=== PATIENT | female | born 1940 | race Caucasian/White ===

== ENCOUNTER 2020-10-18 20:53 | Emergency (ER) | payer OTHER ==
[~2020-10-18] VITALS: Ht 152.4 cm; Wt 59.0 kg
--- NOTE | ~2020-10-18 | EMS ---
[address] [address] EMS Patient Care Report Name: MARIELA FERNANDEZ Room #: DEP KAIT Peña#: [id number] Admission: 10/18/20 Attend Phys: Discharge: 10/18/20 Date of : 38 Report #: [id number] THIS REPORT FOR: //name// Report Transmitted: 10/19/2020 06:15 EMS Care Summary [facility] MED-ACT Incident [id number] @ 10/18/2020 20:12 Incident Location [address] [place] [address] Patient MARIELA FERNANDEZ Female, 80 Years 1940 Patient Address [address] [place] [address] Patient History Dementia, Patient Allergies No known allergies, Patient Medications None Reported, Chief Complaint Alterted Mental Status Disposition Transported No Lights/[place] Reason Unconscious/Fainting Transported To [facility] Narrative Pt found sitting in a living room chair in no apparent distress. Pt's RN states "The Pt has had altered mental status, generalized weakness and sluggish [address] [address] EMS Patient Care Report Name: MARIELA FERNANDEZ Room #: DEP Mariana#: [id number] Admission: 10/18/20 Attend Phys: Discharge: 10/18/20 Date of : 38 Report #: [id number] response to following commands for the past day. In the last hour she has shown some improvement and is now back to her baseline. Family and house MD would like her sent out for evaluation. Pt was assisted to ambulance cot and secured with seat belts. Pt was covered with a blanket for warmth and moved to the ambulance without incident. EMS alerted [facility] on MARCER system ENVIRONMENTAL FIELD SERVICES TECHNICIAN. Pt was delivered to ER bed 8 without change. Pt was moved to the hospital bed and secured with locked side rails in the upright position. Lead hospital chaplain gave report to receiving RN transferring care and Pt to hospital staff. Initial Vitals @20:34P: 69,R: 18,BP: 176/80,Pain: 0/10,GCS: 14,Temp: 97.8F,Glucose: 81,SpO2: 97,Revised Trauma: 12, @20:44P: 69,R: 18,BP: 147/70,Pain: 0/10,GCS: 14,SpO2: 97,Revised Trauma: 12, Assessments @20:55MENTAL:Confused,SKIN:HEENT:Eyes: Left Pupil: 2-mm,Eyes: Right Pupil: 2-mm,Head/Face: No Abnormalities,Neck/Airway: No Abnormalities,LUNG SOUNDS:General: No Abnormalities,ABDOMEN:General: No Abnormalities,PELVIS//GI:No Abnormalities,EXTREMITIES:Left Arm: No Abnormalities,Right Arm: No Abnormalities,Left Leg: No Abnormalities,Right Leg: No Abnormalities,PULSE:Radial: 2+ Normal,NEURO:No Abnormalities, Impression Altered Mental Status Procedures @PTASurgical Mask on PatientResponse: Unchanged Timeline ENVIRONMENTAL FIELD SERVICES TECHNICIAN,Surgical Mask on Patient,Response: Unchanged 20:10,Call Received 20:10,Psap Call 20:12,Dispatched 20:13,En Route 20:19,On Scene 20:23,At Patient 20:31,Depart Scene 20:34,BP: 176/80 M,PULSE: 69,RR: 18 R,SPO2: 97 Ox,ETCO2: ,B,PAIN: 0,GCS: 14, 20:44,BP: 147/70 M,PULSE: 69,RR: 18 R,SPO2: 97 Ox,ETCO2: ,BG: ,PAIN: 0,GCS: 14, 20:48,At Destination 21:05,Call Closed Disclaimer [facility] [address] [place] [address] EMS Patient Care Report Name: MARIELA FERNANDEZ Room #: DEP [facility].#: [id number] Admission: 10/18/20 Attend Phys: Discharge: 10/18/20 Date of : 38 Report #: [id number] v1.1 Copyright 2020 [employer] This EMS Care Summary contains data elements from the applicable legal record (which may be displayed differently). It is designed to provide pertinent information for the following purposes: continuity of care, clinical quality, and state data reporting. The complete legal record is available to ED staff and administrators of the receiving hospital in [employer] Patient Tracker. All data is provided "as is."
[2020-10-18 21:23] LABS: HEMATOCRIT 35.5 % (37.0-47.0); HEMOGLOBIN 11.5 gm/dL (12.0-15.0); MCH 29.7 pg (26.0-34.0); MCHC 32.4 g/dL (28.0-37.0); MCV 91.7 fL (80.0-100.0); RBC 3.87 mil/uL (4.20-5.00); RDW 13.3 % (10.5-14.5); WBC 7.1 thou/uL (4.0-11.0)
[2020-10-18 21:26] LABS: CALCIUM 9.5 mg/dL (8.5-10.1); CREATININE 1.3 mg/dL (0.6-1.0); POTASSIUM 3.9 mmol/L (3.5-5.1)
[2020-10-18 21:32] LABS: ALBUMIN 3.3 g/dL (3.4-5.0); TOTAL BILIRUBIN 0.3 mg/dL (0.2-1.0)
[2020-10-18] MEDS ORDERED: ASA81BEC PO (21:50)
[2020-10-18] MEDS ORDERED: NAMENDA 10 MG T10 MG PO (21:50)
[2020-10-18] MEDS ORDERED: RIVASTIGMINE6 MG PO (21:50)
[2020-10-18] MEDS ORDERED: CALCIUM 600 +1 EAC8 PO (21:51)
[2020-10-18] MEDS ORDERED: FISH OIL 1,001000 M2 PO (21:51)
[2020-10-18] MEDS ORDERED: FISH OIL 1,001000 M3 PO (21:52)
[2020-10-18] MEDS ORDERED: ALENDRONATE SOD70 MG PO (21:53)
[2020-10-18] MEDS ORDERED: FAMOTIDINE 20 M20 MG PO (21:53)
[2020-10-18] MEDS ORDERED: SIMVASTATIN80 MG PO (21:53)
[2020-10-18 22:08] LABS: URINE BILIRUBIN NEGATIVE (Negative); URINE BLOOD NEGATIVE (Negative); URINE CLARITY SL CLOUDY; URINE COLOR YELLOW; URINE GLUCOSE-RANDOM* NEGATIVE (Negative); URINE KETONES NEGATIVE (Negative); URINE LEUKOCYTES-REFLEX NEGATIVE (Negative); URINE NITRITE-REFLEX NEGATIVE (Negative); URINE PROTEIN (DIPSTICK) NEGATIVE (Negative); URINE SPECIFIC GRAVITY 1.015 (1.005-1.035); URINE UROBILINOGEN 0.2 E.U./dl (0.2-1.0)
[2020-10-18 23:16] VITALS: BP 130/50
--- NOTE | 2020-10-19 07:08 | EKG ---
[facility] [place] [address] ELECTROCARDIOGRAM REPORT Name: MARIELA FERNANDEZ [id number] Admission: 10/18/20 Attend Phys: Discharge: 10/18/20 Date of : 38 Report #: [id number] [facility] ED Test Date: 2020-10-18 Test Time: 21:07:57 Pat Name: MARIELA FERNANDEZ Department: Room: Gender: F Barrel Assembler: ba : 1940 Requested By: Katey Nolasco Order Number: [id number] MD: Jose Prieto Measurements Intervals [place] Rate: 70 P: 48 VT: 161 QRS: 11 QRSD: 87 T: 28 QT: 369 QTc: 399 Interpretive Statements Sinus rhythm LVH by voltage Baseline wander in lead(s) II,aVF No previous ECG available for comparison Electronically Signed On 10-19-2020 7:08:39 STEAM FLATTENER by Jose Prieto [email or web address] <ELECTRONICALLY SIGNED> By: Jose Prieto MD, [facility] 10/19/20 0708 06 06 Jose Prieto MD, FACC /EPI
== END 2020-10-18 23:18 ==
LOC: ER 20:53
PROVIDERS: Nurse Practitioner Family
DX: R41.0 Disorientation, unspecified (principal); G45.9 Transient cerebral ischemic attack, unspecified; I10 Essential (primary) hypertension; Z79.82 Long term (current) use of aspirin; Z79.899 Other long term (current) drug therapy

== ENCOUNTER 2021-01-19 23:11 | Inpatient (IN) | payer OTHER ==
[~2021-01-19] VITALS: Ht 152.4 cm; Wt 57.0 kg
[~2021-01-19 23:11] MED LIST: ALENDRONATE SOD70 MG PO; ASA81BEC PO; CALCIUM 600 +1 EAC8 PO; FAMOTIDINE 20 M20 MG PO; FISH OIL 1,001000 M2 PO; FISH OIL 1,001000 M3 PO; NAMENDA 10 MG T10 MG PO; RIVASTIGMINE6 MG PO; SIMVASTATIN80 MG PO
[2021-01-19 23:14] VITALS: BP 136/57
[2021-01-19] MEDS ORDERED: BIOFREEZE118 ML TOP (23:42)
[2021-01-19] MEDS ORDERED: CALCIUM500 MG PO (23:43)
[2021-01-19] MEDS ORDERED: COLACE100 MG PO (23:46)
[2021-01-19] MEDS ORDERED: LEXAPRO 10 MG T10 M1 PO (23:47)
[2021-01-19] MEDS ORDERED: RIVASTIGMINE6 MG PO (23:49)
[2021-01-19] MEDS ORDERED: FAMOTIDINE20 MG PO (23:50)
[2021-01-19] MEDS ORDERED: FISH OIL 1,0001 EAC9 PO (23:50)
[2021-01-19] MEDS ORDERED: SUPER THERAVIT1 EACH PO (23:51)
[2021-01-19] MEDS ORDERED: MELATONIN5 M4 PO (23:51)
[2021-01-19] MEDS ORDERED: NAMENDA 10 MG T10 MG PO (23:52)
[2021-01-19] MEDS ORDERED: NORCO5 PO ×2 (23:53→23:55)
[2021-01-19] MEDS ORDERED: ZOCOR20 MG PO ×2 (23:54)
[2021-01-19] MEDS ORDERED: IMODIUM A-D2 MG PO (23:55)
[2021-01-20] VITALS (7 sets, daily range): BP systolic 122–178; BP diastolic 69–81
[2021-01-20 00:42] LABS: ABSOLUTE NEUTROPHILS 6.5 thou/uL (1.4-8.2); BASOPHILS 0.5 % (0.0-2.0); EOSINOPHILS 4.2 % (0.0-3.0); HEMOGLOBIN 10.1 gm/dL (12.0-15.0); LYMPHOCYTES 11.1 % (24.0-44.0); MCH 30.4 pg (26.0-34.0); MCHC 33.6 g/dL (28.0-37.0); MCV 90.6 fL (80.0-100.0); MONOCYTES 8.9 % (1.0-8.0); PLATELET COUNT 300 thou/uL (150-400); POLYS 75.3 % (36.0-66.0); RBC 3.31 mil/uL (4.20-5.00); RDW 13.5 % (10.5-14.5); WBC 8.7 thou/uL (4.0-11.0)
[2021-01-20 00:45] LABS: CALCIUM 8.8 mg/dL (8.5-10.1); CREATININE 1.1 mg/dL (0.6-1.0); POTASSIUM 4.4 mmol/L (3.5-5.1)
[2021-01-20 00:51] LABS: ALBUMIN 2.6 g/dL (3.4-5.0); TOTAL BILIRUBIN 0.2 mg/dL (0.2-1.0); TOTAL PROTEIN 6.5 g/dL (6.4-8.2)
[2021-01-20 18:05] LABS: HEMATOCRIT 29.9 % (37.0-47.0); MCH 29.9 pg (26.0-34.0); MCHC 33.5 g/dL (28.0-37.0); MCV 89.3 fL (80.0-100.0); RBC 3.35 mil/uL (4.20-5.00); RDW 13.1 % (10.5-14.5); WBC 14.9 thou/uL (4.0-11.0)
[2021-01-21 03:45] VITALS: BP 127/68
[2021-01-21 05:33] LABS: HEMATOCRIT 27.5 % (37.0-47.0); HEMOGLOBIN 9.4 gm/dL (12.0-15.0); MCH 30.3 pg (26.0-34.0); MCHC 34.1 g/dL (28.0-37.0); RBC 3.09 mil/uL (4.20-5.00); RDW 13.2 % (10.5-14.5); WBC 10.8 thou/uL (4.0-11.0)
[2021-01-21 07:52] VITALS: BP 141/59
[2021-01-21 15:19] VITALS: BP 135/65
[2021-01-21 18:04] VITALS: BP 166/74
[2021-01-21 23:01] VITALS: BP 188/77
[2021-01-22 03:59] VITALS: BP 151/63
[2021-01-22 04:05] VITALS: BP 188/77
[2021-01-22 05:58] LABS: HEMATOCRIT 25.6 % (37.0-47.0); HEMOGLOBIN 8.5 gm/dL (12.0-15.0); MCH 29.8 pg (26.0-34.0); MCV 90.2 fL (80.0-100.0); RBC 2.84 mil/uL (4.20-5.00); WBC 14.2 thou/uL (4.0-11.0)
[2021-01-22 07:50] VITALS: BP 150/67
[2021-01-22 16:00] VITALS: BP 142/73
[2021-01-22 19:20] VITALS: BP 140/69
[2021-01-23 04:27] VITALS: BP 147/78
[2021-01-23 07:15] VITALS: BP 149/76
[2021-01-23 16:40] VITALS: BP 167/70
--- NOTE | 2021-01-30 09:34 | HC ---
[facility] [place] [address] CONSULTATION Name: MARIELA FERNANDEZ Room #: 445-P [facility] IN M.R.#: [id number] Admission: 01/20/21 Attend Phys: Michael George MD Discharge: 01/23/21 Date of : 38 Report #: [id number] THIS REPORT FOR: cc: Garry Angel MD, Christopher B. MD VanDenBerghe,Elias Pillai MD ~ DOC #: [id number] Elias Stark MD DATE OF SERVICE: 01/20/2021 ORTHOPEDIC CONSULTATION CHIEF COMPLAINT: Right hip pain. HISTORY OF PRESENT ILLNESS: The patient is a pleasant 80-year-old female presented to the Emergency Department last evening following a fall at the [facility]. This apparently first occurred on 01/10. Initial x-rays per report did not reveal any fractures or abnormalities. She continues to have pain as well as an inability to bear weight. reports that she has primarily been wheelchair bound since that time and they elected to bring her into the [facility] for further evaluation. The patient's reports that she has primarily been able to ambulate at the [facility] without significant assistive device. No other obvious injuries were noted. PAST MEDICAL HISTORY: Significant for advanced dementia, insomnia, osteoporosis. PAST SURGICAL HISTORY: Unknown at this point. SOCIAL HISTORY: The patient is , resides at [facility]. CURRENT MEDICATIONS: Please see MAR. ALLERGIES: No known drug allergies. PHYSICAL EXAMINATION: GENERAL: The patient is somnolent, unable to localize her pain or tenderness or provide any history, cooperation with exam. VITAL SIGNS: Temperature 37.3, pulse 80, respirations 18, BP 178/81, pulse ox 99. EXTREMITIES: Reveals the pelvis is stable to AP and lateral compression. She has mild amount of ecchymosis over the right lateral hip, which appears to be resolving. She localizes tenderness in this area. Motor and sensory exam are limited due to patient cooperation. She minimally moves and withdraws from any [facility] [address] [place] [address] CONSULTATION Name: MARIELA FERNANDEZ Room #: 445-P [facility] IN M.R.#: [id number] Admission: 01/20/21 Attend Phys: Michael George MD Discharge: 01/23/21 Date of : 38 Report #: [id number] attempted motion of the hip. Legs reveal mild edema. Compartments are all soft. Abrasions noted on the lateral aspect of her anterior knee. No other obvious wounds are apparent. LABORATORY DATA: Reviewed. Radiographs of the hip reveal a mildly displaced and angulated right femoral neck fracture with impaction. IMPRESSION: Right hip pain, status post fall, impacted femoral neck fracture with displacement. PLAN: Discussed treatment options with the patient and , they elected for a right hip hemiarthroplasty. Questions were encouraged, all were answered. The anticipated postoperative course was discussed in detail, the need for physical therapy and rehab, potential for complications such as dislocations and instability. The patient's wished to proceed with the above. Elias Stark MD GRV/KDA <ELECTRONICALLY SIGNED> By: Elias Stark MD 01/30/21 0934 1639 [id number] Elias Stark MD /nt
--- NOTE | 2021-01-30 09:34 | O ---
[facility] [place] [address] OPERATIVE REPORT Name: MARIELA FERNANDEZ Room #: 445-P [facility] M.R.#: [id number] Admission: 01/20/21 Attend Phys: Michael George MD Discharge: 01/23/21 Date of : 38 Report #: [id number] THIS REPORT FOR: cc: Garry Angel MD, Christopher B. MD VanDenBerghe,Elias Pillai MD ~ DOC #: [id number] Elias Stark MD DATE OF SERVICE: 01/20/2021 PREOPERATIVE DIAGNOSIS: Right femoral neck fracture, subcapital, displaced, status post fall. POSTOPERATIVE DIAGNOSIS: Right femoral neck fracture, subcapital, displaced, status post fall. PROCEDURE PERFORMED: Right hip hemiarthroplasty. SURGEON: Elias Stark MD PAPER FOLDING MACHINE OPERATOR: Maria Elena Schultz PA-C ANESTHESIA: General per LMA. FLUIDS: Please see Anesthesia record. ESTIMATED BLOOD LOSS: Approximately 50 mL. IMPLANTS UTILIZED: Hill [employer]hew size 11 Synergy porous femoral component with a +4 mm taper sleeve assembly and a 43 mm unipolar head. DESCRIPTION OF PROCEDURE: After proper identification of the patient and the operative site in preoperative holding area, the operative site was signed by myself, prophylactic antibiotics were given. Informed consent was obtained from the patient's . He reports that she had been nonambulatory following her fall and been using primarily a wheelchair for ambulation. Otherwise, he reports for the most part she was able to ambulate without assistance. Questions were encouraged, all were answered. We discussed the risks, benefits, alternatives and potential complications of her injury and treatment. wished to proceed with the above. She was brought back to the operative suite. After induction of satisfactory general anesthesia, she was carefully positioned in her left lateral decubitus position. The pelvis was stabilized. Right hip was sterilely prepped and draped in the usual manner. Soft tissues were amenable to operative fixation. Mild amount of ecchymosis was noted. Final skin draping was with Ioban. After sterile prep and drape, posterior approach to the hip was planned. Skin was incised sharply. Full-thickness skin flaps [address] [address] OPERATIVE REPORT Name: MARIELA FERNANDEZ Room #: 445-P [facility].#: [id number] Admission: 01/20/21 Attend Phys: Michael George MD Discharge: 01/23/21 Date of : 38 Report #: [id number] were developed. The subcutaneous tissues were dissected to the level of the gluteal fascia. This was incised. Muscle fibers were spread bluntly. Charnley retractor was carefully placed. A lap sponge was used to bluntly dissect the posterior capsular structures. Piriformis tendon was identified, tagged and tenotomized. T-shaped capsulotomy was performed. A displaced femoral neck fracture was noted and a corkscrew was utilized to remove the femoral head in its entirety. It measured 43 mm on the back table and a 43 mm head provided the best overall fit and suction tight fit within the acetabulum. There was no evidence of any acetabular fractures or significant chondral wear. The femoral neck was osteotomized approximately 1 cm above the lesser trochanter and then reamed by hand and serial broaching by hand up to a size 11 stem. Trial ball and neck assembly revealed a +4 neck, 43 mm unipolar head provided the best overall stability, range of motion of the joint as well as near symmetric leg lengths. The patient had tightness in her hip flexors, which were noted in a variety of stem length and likely due to her activity level and time seated. These trial implants were removed. Due to the good bone cortices, I elected for press-fit fixation, porous coated stem. The wound in femur was thoroughly irrigated with antibiotic irrigant, dried and then the femoral stem was carefully impacted into position in an everted position matching the broaching. It was fully seated and stable. No evidence of periprosthetic fracture or proximal femur fracture were noted. Trial ball and neck assembly were again utilized and then the final implants placed were a 43 mm unipolar head with a +4 taper sleeve. This was carefully impacted into position. The hip was reduced, stable throughout a full range of motion. Near symmetric leg lengths were present and the capsule was repaired with #2 FiberWire. Piriformis tendon was reapproximated and repaired. One gram of vancomycin powder was utilized, half at deep, half at more superficial. Fascia was repaired with 0 Vicryl, 2-0 Vicryl for the subcutaneous tissues. Final skin closure was with raquel. Sterile HILARY dressing was placed and at time of dictation, she was still in the operative suite with anticipated discharge to the recovery room in stable condition. Elias Stark MD GRV/JACINTO <ELECTRONICALLY SIGNED> By: Elias Stark MD 01/30/21 [id number] Elias Stark MD /nt
== END 2021-01-23 18:29 | DRG 521 ==
LOC: ER 23:11 → EROBS 01-20 01:31 → 4S 01-20 01:31 → EROBS 01-20 01:32 → 4S 01-20 02:34
PROVIDERS: Emergency Medicine Emergency Medical Services; Physician Assistant Surgical; ADMIT Hospitalist; ATTEND Hospitalist
PROC: 0SRR01A Replacement of Right Hip Joint, Femoral Surface with Metal Synthetic Substitute, Uncemented, Open Approach (ICD-10-PCS; principal; 2021-01-20)
DX: S72.011A Unspecified intracapsular fracture of right femur, initial encounter for closed fracture (principal); E43 Unspecified severe protein-calorie malnutrition; D62 Acute posthemorrhagic anemia; F03.90 Unspecified dementia, unspecified severity, without behavioral disturbance, psychotic disturbance, mood disturbance, and anxiety; I10 Essential (primary) hypertension; G47.00 Insomnia, unspecified; M81.0 Age-related osteoporosis without current pathological fracture; R53.81 Other malaise; F32.9 Major depressive disorder, single episode, unspecified; F41.9 Anxiety disorder, unspecified; Z20.822 Contact with and (suspected) exposure to COVID-19; Z79.82 Long term (current) use of aspirin; Z79.899 Other long term (current) drug therapy; W19.XXXA Unspecified fall, initial encounter; Y93.89 Activity, other specified; Y92.89 Other specified places as the place of occurrence of the external cause; Y99.8 Other external cause status
CPT/HCPCS: 10195; 50010; 50101; 50382; 50414; 51057; 51130; 51225; 51226; 53000; 53078; 56460; 56525; 56530; 57103; 58605; 62110; 62900; 70005

== ENCOUNTER 2021-01-27 13:47 | Inpatient (IN) | payer OTHER ==
[~2021-01-27] VITALS: Ht 149.9 cm; Wt 58.1 kg
[~2021-01-27 13:47] MED LIST changes: +BIOFREEZE118 ML TOP; +CALCIUM500 MG PO; +COLACE100 MG PO; +FAMOTIDINE20 MG PO; +FISH OIL 1,0001 EAC9 PO; +IMODIUM A-D2 MG PO; +LEXAPRO 10 MG T10 M1 PO; +MELATONIN5 M4 PO; +NORCO5 PO; +SUPER THERAVIT1 EACH PO; +ZOCOR20 MG PO
[2021-01-27 13:54] VITALS: BP 119/54
[2021-01-27 14:48] LABS: CALCIUM 8.4 mg/dL (8.5-10.1); CREATININE 0.9 mg/dL (0.6-1.0); POTASSIUM 3.6 mmol/L (3.5-5.1)
[2021-01-27 14:50] LABS: ABSOLUTE NEUTROPHILS 10.8 thou/uL (1.4-8.2); BASOPHILS 0.2 % (0.0-2.0); EOSINOPHILS 1.5 % (0.0-3.0); HEMATOCRIT 25.4 % (37.0-47.0); HEMOGLOBIN 8.5 gm/dL (12.0-15.0); LYMPHOCYTES 6.1 % (24.0-44.0); MCH 29.6 pg (26.0-34.0); MCHC 33.6 g/dL (28.0-37.0); MCV 88.2 fL (80.0-100.0); MONOCYTES 7.7 % (1.0-8.0); PLATELET COUNT 548 thou/uL (150-400); POLYS 84.5 % (36.0-66.0); RBC 2.88 mil/uL (4.20-5.00); RDW 13.1 % (10.5-14.5); WBC 12.8 thou/uL (4.0-11.0)
[2021-01-27 14:55] LABS: ALBUMIN 2.2 g/dL (3.4-5.0); TOTAL BILIRUBIN 0.5 mg/dL (0.2-1.0)
[2021-01-27 17:39] LABS: URINE BILIRUBIN NEGATIVE (Negative); URINE BLOOD NEGATIVE (Negative); URINE CLARITY CLEAR; URINE COLOR YELLOW; URINE GLUCOSE-RANDOM* NEGATIVE (Negative); URINE KETONES NEGATIVE (Negative); URINE LEUKOCYTES-REFLEX NEGATIVE (Negative); URINE NITRITE-REFLEX NEGATIVE (Negative); URINE PROTEIN (DIPSTICK) TRACE (Negative); URINE UROBILINOGEN 0.2 E.U./dl (0.2-1.0)
[2021-01-27 19:11] LABS: ALBUMIN 2.3 g/dL (3.4-5.0); TOTAL PROTEIN 5.6 g/dL (6.4-8.2)
[2021-01-27 19:58] VITALS: BP 115/66
[2021-01-27 20:22] VITALS: BP 143/63
--- NOTE | 2021-01-27 20:23 | NUR ---
PT'S PHONE NUMBER [phone] NIMA HELTON.
[2021-01-27 20:24] LABS: % SATURATION 26 % (20-39); IRON 32 ug/dL (50-170); TIBC 125 ug/dL (250-450)
[2021-01-27 20:45] VITALS: BP 114/80
--- NOTE | 2021-01-28 01:56 | NUR ---
Pt admited from ED at 2030 accompanied by staff via cart. Alert to self only,murmbles some few words. Pt gets combative at times with cares. VSS. C/o pain to right hip with movement. HILARY dsg in place on right hip, C/D/I. Other skin intact. Mueller place in place, patent with yellow urine noted. Meds given crushed in icecream. Order obtained for pt to be NPO after midnight,IVFX1 bag and initiated. Fall precautions in place,frequent checks on pt by nurses station.
[2021-01-28 05:51] LABS: HEMATOCRIT 23.3 % (37.0-47.0); HEMOGLOBIN 7.8 gm/dL (12.0-15.0); MCH 29.8 pg (26.0-34.0); MCHC 33.6 g/dL (28.0-37.0); MCV 88.8 fL (80.0-100.0); RBC 2.63 mil/uL (4.20-5.00); RDW 13.4 % (10.5-14.5)
[2021-01-28 06:07] LABS: CALCIUM 7.9 mg/dL (8.5-10.1); CREATININE 0.7 mg/dL (0.6-1.0); POTASSIUM 3.2 mmol/L (3.5-5.1)
--- NOTE | 2021-01-28 07:13 | EKG ---
[address] [address] ELECTROCARDIOGRAM REPORT Name: MARIELA FERNANDEZ Room #: 462-P ADM IN M.R.#: [id number] Admission: 01/27/21 Attend Phys: Asad Lee MD Discharge: Date of : 38 Report #: [id number] [facility] ED Test Date: 2021-01-27 Test Time: 16:35:39 Pat Name: MARIELA FERNANDEZ Department: Room: 462 Gender: F Bath Attendant: JCHAILUIS MANUEL : 1940 Requested By: Tanisha Brambila Order Number: [id number] MD: Jose Prieto Measurements Intervals [place] Rate: 85 P: 62 MD: 150 QRS: 28 QRSD: 84 T: 54 QT: 365 QTc: 434 Interpretive Statements Sinus rhythm Compared to ECG 10/18/2020 21:07:57 Left ventricular hypertrophy no longer present Electronically Signed On 01-28-2021 7:12:54 CDT by Jose Prieto [email or web address] <ELECTRONICALLY SIGNED> By: Jose Prieto MD, [facility] 01/28/2112 1634 34 Jose Prieto MD, FACC /EPI
[2021-01-28 07:19] VITALS: BP 135/58
[2021-01-28 11:22] VITALS: BP 138/64
--- NOTE | 2021-01-28 11:49 | NUR ---
PT ADMITTED RELATED TO RIGHT HIP PAIN/DISLOCATION. CM REVIEWED CHART AND SPOKE WITH CARE TEAM. CM MET [facility] PT AND SPOUSE AT BEDSIDE THIS DAY. PT'S SPOUSE ANSWERED ASSESSMENT QUESTIONS. HE INDICATED THAT PT HAD BEEN AT [facility] SKILLED BLOOD BANK TECHNICIAN. PT HAD DISCHARGED THERE 01/22. PT RESIDES AT [facility] WHICH IS WHERE SHE FELL ORIGINALLY. SPOUSE INDICATED THAT THEY PLAN FOR PT TO RETURN TO [facility] FOR SKILLED REHAB ONCE MEDICALLY STABLE. CM INDICATED THAT CM TO SEND CLINICAL UPDATES TO [facility] AND [facility]. PT TO OR THIS AM FOR CLOSED OR OPEN REDUCTION OF R HIP. CM CALLED AND SPOKE WITH JEREMIE IN ADMISSIONS AT [facility] AND INDICATED THAT PT MAY BE MEDICALLY STABLE TO RETURN SOON TOMORROW PER THE CARE TEAM. HE IS AWARE AND ABLE TO ACCEPT PT BACK ONCE READY. CM TO FAX CLINICAL UPDATED AFTER PROCEDURE. CM FOLLOWING REGARDING DC PLANNING.
--- NOTE | 2021-01-28 12:20 | NUR ---
ASSUMED PT CARE THIS AM. PT A&OX1. PATIENT REPORTS NO PAIN WHEN ASSESSED. PATIENT BEING COOPERATIVE WITH STAFF. IV PATENT, FLUIDS INFUSING. PATIENT IS ON ROOM AIR. REMAINS IN BED, PATIENT AHS NOT AMBUALTED. FALL PRECAUTIONS ARE IN PLACE, CALL LIGHT WITHIN REACH. AT BEDSIDE.
--- NOTE | 2021-01-28 12:44 | HC ---
[facility] [place] [place] [address] CONSULTATION Name: MARIELA FERNANDEZ Room #: 462-P ADM IN M.R.#: [id number] Admission: 01/27/21 Attend Phys: Asad Lee MD Discharge: Date of : 39 Report #: [id number] THIS REPORT FOR: cc: Melia Mc MD, Lou K. MD Clymer, David J. MD ~ DOC #: [id number] Alberto Reza MD CHIEF COMPLAINT: Dislocated right hip. HISTORY OF PRESENT ILLNESS: This frail, demented 80-year-old female recently underwent a right proximal femoral hemiarthroplasty for correction of a femoral neck fracture. She did well and was discharged back to her nursing facility where she is primarily at bed rest. She was noted to have deformity of the hip and was returned to the Emergency Room last evening. Here x-rays confirmed a dislocated proximal femoral hemiarthroplasty on the right side. Reduction was attempted with some sedation, but was unsuccessful. She has been admitted for further treatment. At the time of my evaluation, she is fairly unresponsive. She is in moderate discomfort with any attempted movement about the right hip. The dressing is clean and dry. There is no obvious bruising or swelling. The right hip is slightly flexed and internally rotated consistent with a superior posterior dislocation. No other significant objective, clinical abnormalities are noted. X-rays of the pelvis confirm a superior posterior dislocation of the right proximal femoral hemiarthroplasty. I think we will try to go ahead with closed reduction under more complete anesthetic and muscle relaxation. I have attempted to contact her and I have left a message at the time of this dictation, but did not have his response, I believe he was aware of the patient's admission to the Emergency Room last evening, pending approval and appropriate permission completion. We will plan to proceed with surgery today. Hopefully, this will involve closed reduction under anesthesia. If reduction is not possible, then possible open reduction might be necessary as well. Alberto Reza MD DJC/STD <ELECTRONICALLY SIGNED> By: Alberto Reza MD 01/28/21 1244 0703 0750 Alberto Reza MD /nt
--- NOTE | 2021-01-28 13:10 | NUR ---
Nutrition: Consult received stating "weight change". Pt admit with right hip pain/dislocation. Surgery attempt today for reduction was unsucessful, declined additional open procedure. Hx severe dementia. CLD just ordered. Weight hx indicates 130# in september, 127# current. Past diet mechanically altered chopped. As no significant weight change seen and BMI WNL, place as low risk. REC advance diet as medically appropriate.
[2021-01-28 13:36] VITALS: BP 162/70
[2021-01-28] MEDS ORDERED: MAPAP325 MG PO (14:48)
[2021-01-28] MEDS ORDERED: BISACODYL10 MG RECTAL (14:49)
[2021-01-28] MEDS ORDERED: MILK OF MA400 MG/5 M PO (14:52)
[2021-01-28 16:32] VITALS: BP 154/74
[2021-01-28 19:22] VITALS: BP 156/68
--- NOTE | 2021-01-29 01:46 | NUR ---
assumed care approx 1900 evening 01/28. pt in bed sleeping at change of shift. pt has not complained of any pain and has been sleeping soundly. parker to dd with yellow urine to bag. abduction pillow in place. dressing in place to right hip c/d/i. bed alarm on and call light in reach. will continue to monitor.
[2021-01-29 05:24] LABS: POTASSIUM 3.5 mmol/L (3.5-5.1)
[2021-01-29 05:29] LABS: HEMOGLOBIN 8.1 gm/dL (12.0-15.0)
--- NOTE | 2021-01-29 07:44 | NUR ---
ORDERS FOR EVAL AND TREAT WITH Pt WITH DISLOCATION OF HIP. ATTEMPTS BY ORTHO TO REDUCE ARE UNSUCCESSFUL. WILL AWAIT ORDERS FROM ORTHO FOR FURTHER DIRECTION BEFORE INITIATING
[2021-01-29 08:26] VITALS: BP 178/72
--- NOTE | 2021-01-29 08:46 | O ---
[facility] [place] [address] OPERATIVE REPORT Name: MARIELA FERNANDEZ Room #: 462-P ADM IN M.R.#: [id number] Admission: 01/27/21 Attend Phys: Asad Lee MD Discharge: Date of : 39 Report #: [id number] THIS REPORT FOR: cc: Melia Mc MD, Lou K. MD Clymer, David J. MD ~ DOC #: [id number] Alberto Reza MD PREOPERATIVE DIAGNOSIS: Right hip hemiarthroplasty dislocation. POSTOPERATIVE DIAGNOSIS: Right hip hemiarthroplasty dislocation. PROCEDURE: Unsuccessful attempted closed reduction of right hip hemiarthroplasty. SURGEON: Alberto Reza MD. INDICATIONS: This frail, demented, nonambulatory 80-year-old female underwent right hip hemiarthroplasty one week ago. She was discharged to an extended care facility, but has returned with a new posterior superior dislocation. The exact timing and cause are unclear. An attempted reduction in the Emergency Room was performed, but without success. She was therefore admitted for another attempt under anesthesia. I had a lengthy discussion with this patient's as she is demented and unable to communicate. He notes that she is essentially bed or wheelchair dependent. I have explained the circumstances with regard to the new hip dislocation, reviewing possible further treatment options. We have discussed a closed reduction or possible open reduction or possible resection, Girdlestone hemiarthroplasty. I have explained that given her general status, it is quite possible that the hip if reduced, might simply dislocate once again. Given this, I suggested that Girdlestone resection might be an option to consider as she is nonambulatory and demented. After a lengthy discussion, he stated he appreciated all the options and appreciated the opportunity to consider them today; however, he decided that he was not going to approve an open procedure, but would approve an attempted closed reduction under anesthesia. He states that if this is unsuccessful, he may elect to just leave the hip dislocated or may consider coming back at another time for open treatment with possible Girdlestone resection if necessary. DESCRIPTION OF PROCEDURE: Given this extensive preoperative discussion, the patient was taken to the operating room and placed under general anesthesia. Additional muscle relaxation was performed. The hip was then gently but firmly manipulated with flexion, rotation and traction. Excellent countertraction against the pelvis was provided by other individuals in the operating room. [address] [address] OPERATIVE REPORT Name: MARIELA FERNANDEZ Room #: 462-P [facility] IN .R.#: [id number] Admission: 01/27/21 Attend Phys: Asad Lee MD Discharge: Date of : 39 Report #: [id number] Multiple vigorous attempts were tried. Multiple intraoperative x-rays were obtained on each attempt. It appears that the hip remained significantly superiorly and posteriorly displaced consistent with an entrapped dislocation. There was also significant spasm of the adductor muscle group, which contributes to this problem. I felt there was really no way I was going to achieve a closed reduction with manipulation only and therefore felt the only other options are either to accept the current position or to go ahead with an open procedure for either open reduction or Girdlestone arthroplasty. Given the 's concerns and wishes to avoid any open procedure today, we elected to abandon this attempt and simply stop the procedure. The patient was awakened and returned to the recovery room. Once again, an abduction pillow was applied for support and comfort. Her dressing has remained intact and appears clean and dry. There is no evidence of any wound problems. These issues were discussed again with the patient's and he once again agrees with this conservative approach and hope to avoid any further open incisions or surgery if possible. MD FERNANDO Dhillon/LIZABETH <ELECTRONICALLY SIGNED> By: Alberto Reza MD 01/29/21 0846 1142 1208 Alberto Reza MD /nt
[2021-01-29 11:20] VITALS: BP 142/76
--- NOTE | 2021-01-29 12:53 | NUR ---
Received awake on bed. Due medications given as prescribed, crushed and given with apple sauce. On MS, not on telemetry; no complains and signs of chest pain, crushing sensation and heaviness. Assisted in ADLs. Vital signs stable. On clear liquids- tolerating well; no nausea, no vomiting and no abdominal pain noted; with orders to advance as tolerated- advanced to soft diet for lunch; assisted and encouraged in eating and drinking. Incontinent of bowel and bladder, checked frequently and changed as needed. Falls bundle in place. With abductor pillow in place; hip precaution observed. With parker in place- draining well; output measured and recorded accordingly. With dressing at R hip- C/D/I; HILARY dressing in place; no bleeding and profuse drainage noted. To continue monitoring patient. Pt's visited this PM; update given. Ortho JAMES came this PM, talked to pt's - he still does not want any surgical interventions now- CM informed re: this. To continue monitoring patient.
--- NOTE | 2021-01-29 15:07 | NUR ---
ORTHO FOLLOWED UP WITH PT'S SPOUSE THIS DAY AND HE INDICATED THAT THEY DON'T WANT ANY SURGICAL INTERVENTION AT THIS TIME. R HIP REMAINS DISLOCATED. PT AND OT HAVE NOT SEEN PT DURING HER ADMISSION. NEED CLARIFICAITON ON WB STATUS ALTHOUGH LIKELY NWB. CM SPOKED WITH NURSE ISSAC AT [facility] AND THEY INDICATED THAT THEY WOULDN'T BE ABLE TO ACCEPT PT BACK IN HER CONDITION. CM REACHED OUT TO ADMISSIONS AT [facility] AND THEY DON'T HAVE ANY LTC BEDS OPEN BUT INDICATED THAT THEY WOULD REVIEW CLINICAL TO SEE IF THEY COULD SKILL TO WORK ON TRANSFERS ON WB LEG... CM FAXED CLINICAL UPDATE. CM PROVIDED SPOUSE WITH LIST OF FACILITIES IN THE EVENT SKILLED ISN'T AN OPTIONS AND HE WANTS LTC PLACEMENT. CM NOTIFIED PHYSICIAN OF THE ABOVE.
[2021-01-29 16:37] VITALS: BP 136/57
[2021-01-29 21:09] VITALS: BP 137/63
--- NOTE | 2021-01-30 07:35 | NUR ---
ASSUMED PT CARE AROUND 1900. PT IS CONFUSED. SHE SLEPT MOST OF THE NIGHT. RESPIRATIONS EVEN AND UNLABORED. SHE GRIMACES IN PAIN WHEN REPOSITIONED. RIGHT HIP HILARY DRESSING INTACT. REPOSITIONED TOLERATED TO PREVENT SKIN BREAKDOWN. FALL PRECAUTIONS IN PLACE. NOT PROGRESSING WELL TOWARD POC GOALS. REPORT GIVEN TO ONCOMING NURSE.
[2021-01-30 07:48] VITALS: BP 134/58
[2021-01-30 16:06] VITALS: BP 142/62
--- NOTE | 2021-01-30 19:15 | NUR ---
Assumed pt care at 7am.Pt in bed alert and oriented to self.Assessment completed.vss.Am meds given and well tolerated.Rn fed pt at all meals.Good appetite noted.Pt has moderate bm at noon.Pericare given and repositioned. Pt spouse here to visit,updates given. Dr Fernandez here,order noted. Tylenol po given with relief.Report off to noc rn.
[2021-01-30 19:53] VITALS: BP 146/71
--- NOTE | 2021-01-31 05:41 | NUR ---
Assumed pt care at 1900. Alert to self only,confused but cooperative with cares this shift. VSS. C/o pain with movement, medicated with Tylenol and effective. Incontinent of bowels this shift, parker patent to DD with yellow urine noted. Fall precautions in place. Abductor in place. Will continue to monitor pt.
[2021-01-31 08:10] VITALS: BP 147/60
[2021-01-31 17:49] VITALS: BP 147/44
--- NOTE | 2021-01-31 19:31 | NUR ---
Assumed pt care this am, vs stable had 2 bm this shift. Complete bed bath done, Abductor pillow and FC maintained. POC followed, pt is a feeder but tried to eat on her ownn. Endorsed to the night nurse.
[2021-01-31 19:54] VITALS: BP 147/58
--- NOTE | 2021-02-01 06:01 | NUR ---
Assumed pt care at 1900. A/O to self only gets combative with cares at times. VSS. C/o pain especially with movement, medicated with Tylenol with relief noted. HILARY dsg in place on place right hip,bruised some around it. Mueller patent to DD with yellow urine. Fall precautions in place,will continue to monitor pt.
--- NOTE | 2021-02-01 11:11 | NUR ---
CM REVIEWED CHART THIS AM AND ORTHO NOTES INDICATED THAT PT IS ACITVITY TOLERATED WITH ASSISTANCE. OT ORDERED. PT REORDERED. CM MET WITH SPOUSE AT BEDSIDE THIS AM. CM INIDCATED THAT CM WOULD FAX CLINICAL UPDATE TO [facility] TO SEE IF THEY ARE ABLE TO ACCEPT [employer] TEND[employer] AT THIS TIME. HE WAS AWARE AND AGREEABLE. HE INDICATED THAT HE WAS GOING TO LEAVE AND ATTEMPT TO CONTACT FACILITIES TO FIND LTC PLACEMENT FOR ONCE SKILLED WAS OVER. CM RECEIVED PC FROM [facility] INDICATING THAT SPOUSE HAD SPOKEN TO THEM ABOUT SKILLED THERE WITH TRANSITION TO POSSIBLE LTC. CM FAXED REFERRAL TO [facility]. CM FOLLOWING REGARDING HOPEFUL DC TO SNF THIS DAY. CM TO REQUEST COVID TEST.
[2021-02-01 13:39] VITALS: BP 130/73
--- NOTE | 2021-02-01 16:47 | NUR ---
This nurse agrees with the CONCRETE FLOOR INSTALLER assessment.
--- NOTE | 2021-02-01 17:08 | NUR ---
ASSUMED CARE OF PATIENT AT SHIFT CHANGE. ASSESSMENT CHARTED. MEDS ADMINISTERED PER EMAR. VSS. PATIENT IS ALERT TO SELF AT TIMES. FAMILY AT BEDSIDE FOR MOST OF SHIFT & HELPED SET UP W MEALS. PATIENT ON BEDREST; TURNED EVERY 2HRS TOLERATED. MCKENNA INTACT DRAINING ADEQUATE OUTPUT. CAN BE PHYSICALLY AGGRESSIVE WITH CARES. INCONTINENT THIS SHIFT. SEEN BY PT & OT; SEE NOTES. PATIENT DOES NOT APPEAR IN ANY DISTRESS. FALL PRECAUTIONS IN PLACE. WILL CONTINUE FREQUENT MONITORING
[2021-02-01 21:15] VITALS: BP 143/60
--- NOTE | 2021-02-02 05:02 | NUR ---
ASSUMED CARE OF PT AT SHIFT CHANGE. PT IS ALERT BUT ONLY ORIENTED TO PERSON. FALL PRECAUTION IN PLACE. PT APPEARS COMFORTABLE UNLESS MOVED. MCKENNA IN PLACE AND PATIENT. ASSESSMNT CHARTED. PT DENIED NAUSEA OR SOA. PT WAS ABLE TO GET COMFORTABLE AND SLEEP PART OF THE SHIFT. VSS AND NO S/S OF ACUTE DISTRESS. WILL CONTINUE TO MONITOR.
[2021-02-02 07:30] VITALS: BP 140/68
--- NOTE | 2021-02-02 09:18 | NUR ---
PHYSICIAN SPOKE WITH PT'S SPOUSE AND PLAN IS STILL FOR PT TO DC TO [facility]. CM CONTACTED [facility] AT 4:45 YESTERDAY EVENING AND THEY INDICATED THAT WANTED PT IN THE AM. CM NOTIFIED PT'S SPOUSE. CM FAXED ORDERS THIS AM. CHART COPY MADE. [employer] [facility]SPORT ARRANGED FOR 10:30. NURSE GIVEN NUMBER FOR REPORT. NO OTHER CM INTERVETNION INDICATED. CASE CLOSED.
== END 2021-02-02 11:15 | DRG 537 ==
LOC: ER 13:47 → EROBS 18:00 → 4W 18:00 → EROBS 19:16 → 4W 20:50
PROVIDERS: Emergency Medicine; Orthopaedic Surgery; ADMIT Internal Medicine; ATTEND Internal Medicine
PROC: 0QS6XZZ Reposition Right Upper Femur, External Approach (ICD-10-PCS; principal; 2021-01-28)
DX: S73.004A Unspecified dislocation of right hip, initial encounter (principal); E43 Unspecified severe protein-calorie malnutrition; F03.90 Unspecified dementia, unspecified severity, without behavioral disturbance, psychotic disturbance, mood disturbance, and anxiety; M81.0 Age-related osteoporosis without current pathological fracture; E78.5 Hyperlipidemia, unspecified; D63.1 Anemia in chronic kidney disease; I10 Essential (primary) hypertension; G47.00 Insomnia, unspecified; F32.9 Major depressive disorder, single episode, unspecified; X58.XXXA Exposure to other specified factors, initial encounter; Z20.822 Contact with and (suspected) exposure to COVID-19; Z79.899 Other long term (current) drug therapy; Z79.82 Long term (current) use of aspirin; Z74.01 Bed confinement status; Z86.73 Personal history of transient ischemic attack (TIA), and cerebral infarction without residual deficits; Y93.89 Activity, other specified; Y92.89 Other specified places as the place of occurrence of the external cause; Y99.8 Other external cause status
CPT/HCPCS: 10040; 50010; 50101; 62110; 62900; 70005